=== PATIENT | male | born 1930 | race Caucasian/White ===

== ENCOUNTER 2022-07-20 10:28 | Inpatient (IN) | payer OTHER ==
[~2022-07-20] VITALS: Ht 165.1 cm; Wt 46.2 kg
[2022-07-20 15:39] LABS: Urine Bacteria NONE SEEN /hpf (None Seen); Urine Blood 1+ /uL (Negative); Urine Specific Gravity 1.017 (1.001-1.035); Urine WBC 2589 /hpf (0 - 3); Urine WBC Clumps PRESENT /hpf (None Seen)
[2022-07-20] MEDS ORDERED: cefTRIAXone 1GM/50ML D5W 50 ML IV ONE (16:00)
[2022-07-20 16:40] LABS: Basophils # (auto) 0.1 10 ^3/uL (0-0.2); Basophils % (auto) 0.8 % (0.0-2.0); Eosinophils # (auto) 0.1 10 ^3/uL (0-0.8); Eosinophils % (auto) 0.5 % (0.0-7.0); Hematocrit 33.3 % (41.0-53.0); Hemoglobin 10.6 g/dL (13.5-17.5); Lymphocytes # (auto) 1.2 10 ^3/uL (0.4-5.4); Lymphocytes % (auto) 9.4 % (10.0-50.0); Mean Corpuscular Hemoglobin 27.3 pg (28.0-32.0); Mean Corpuscular Hgb Conc. 31.7 g/dL (32.0-36.0); Mean Corpuscular Volume 86.1 fL (80.0-100.0); Monocytes % (auto) 7.5 % (0.0-12.0); Neutrophils # (auto) 10.8 10 ^3/uL (1.6-8.6); Neutrophils % (auto) 81.8 % (37.0-80.0); Nucleated Red Blood Cells % 0.1 %; Red Blood Cells 3.86 10^6/uL (4.5-5.90); Red Cell Distribution Width 16.3 % (11.8-14.3); White Blood Cell 13.2 10^3/uL (4.4-10.8)
[2022-07-20 17:12] LABS: Albumin 2.8 g/dL (3.4-5.0); Calcium 9.2 mg/dL (8.5-10.1); Potassium 3.8 mmol/L (3.5-5.1)
[2022-07-20 17:18] LABS: BUN/Creatinine Ratio 23.7 (10.0-20.0); Bilirubin, Total 0.5 mg/dL (0.2-1.0); Total Protein 7.5 g/dL (6.4-8.2)
[2022-07-20] MEDS ORDERED: LACTATED RINGER'S 1,000 ML IV ONE (17:45)
[2022-07-20] MEDS ORDERED: DOCUSATE SOD 100 MG CAP PO PRN (19:00)
[2022-07-20] MEDS ORDERED: MORPHINE SULFATE INJ 2 MG/ml SYRG IV PRN (19:00)
[2022-07-20] MEDS ORDERED: ONDANSETRON HCL 4 MG/2 ML VIAL IV PRN (19:00)
[2022-07-20 22:05] LABS: Creatinine, Urine 93 mg/dL (30.0-125.0); Sodium Urine 90 mmol/L (40-220)
[2022-07-21] MEDS: SODIUM CHLORIDE 0.9% 1,000 ML IV SCH ×2 (02:03→10:23)
[2022-07-21 06:40] LABS: Basophils # (auto) 0.1 10 ^3/uL (0-0.2); Basophils % (auto) 0.7 % (0.0-2.0); Eosinophils # (auto) 0.1 10 ^3/uL (0-0.8); Eosinophils % (auto) 1.6 % (0.0-7.0); Hematocrit 29.6 % (41.0-53.0); Hemoglobin 9.8 g/dL (13.5-17.5); Lymphocytes # (auto) 1.4 10 ^3/uL (0.4-5.4); Lymphocytes % (auto) 15.6 % (10.0-50.0); Mean Corpuscular Hemoglobin 28.1 pg (28.0-32.0); Mean Corpuscular Hgb Conc. 33.1 g/dL (32.0-36.0); Mean Corpuscular Volume 84.9 fL (80.0-100.0); Monocytes % (auto) 10.8 % (0.0-12.0); Neutrophils # (auto) 6.4 10 ^3/uL (1.6-8.6); Neutrophils % (auto) 71.3 % (37.0-80.0); Nucleated Red Blood Cells % 0.2 %; Red Blood Cells 3.49 10^6/uL (4.5-5.90); Red Cell Distribution Width 15.5 % (11.8-14.3)
[2022-07-21 07:01] LABS: Albumin 2.4 g/dL (3.4-5.0); BUN/Creatinine Ratio 28.8 (10.0-20.0); Bilirubin, Total 0.3 mg/dL (0.2-1.0); Calcium 8.8 mg/dL (8.5-10.1); Total Protein 6.7 g/dL (6.4-8.2)
[2022-07-21] MEDS ORDERED: cefTRIAXone 1GM/50ML D5W 50 ML IV SCH (09:00)
[2022-07-21] MEDS ORDERED: PANTOPRAZOLE 40 MG/10 ML VIAL INJ IV SCH (10:00)
[2022-07-21 15:35] VITALS: BP 144/77
[2022-07-21] MEDS ORDERED: CEPH-510 PO (15:54)
[2022-07-21] MEDS ORDERED: TAM04C PO (15:54)
[2022-07-21] MEDS ORDERED: TAMSULOSIN HYDROCHLORIDE 0.4 MG CAP PO SCH (18:00)
== END 2022-07-21 16:37 | disposition home or self-care (01) | DRG 689 ==
LOC: ER 10:28 → OVERFLOW 18:59
PROVIDERS: ADMIT Nurse Practitioner Family; ATTEND Nurse Practitioner Family
DX: N13.6 Pyonephrosis (principal); E43 Unspecified severe protein-calorie malnutrition; G93.41 Metabolic encephalopathy; J98.11 Atelectasis; Z68.1 Body mass index [BMI] 19.9 or less, adult; D62 Acute posthemorrhagic anemia; E78.5 Hyperlipidemia, unspecified; I10 Essential (primary) hypertension; E07.9 Disorder of thyroid, unspecified; N40.0 Benign prostatic hyperplasia without lower urinary tract symptoms; E03.9 Hypothyroidism, unspecified; N17.9 Acute kidney failure, unspecified; K40.20 Bilateral inguinal hernia, without obstruction or gangrene, not specified as recurrent; N32.0 Bladder-neck obstruction; N28.89 Other specified disorders of kidney and ureter; K83.8 Other specified diseases of biliary tract; Z90.49 Acquired absence of other specified parts of digestive tract
CPT/HCPCS: 36415; 70450; 74176; 76705; 80053; 81001; 82570; 84300; 85025; 87086; 87088; 87186; 96365; C9113; J0696

== ENCOUNTER 2022-10-05 09:57 | Emergency (ER) | payer OTHER ==
[~2022-10-05] VITALS: Ht 165.1 cm; Wt 46.3 kg
[~2022-10-05 09:57] MED LIST: CEPH-510 PO; TAMS-35 PO
[2022-10-05] MEDS ORDERED: SODIUM BICARBONATE 8.4% INJ 50ML SYRINGE IV ONE (09:58)
[2022-10-05] MEDS ORDERED: EPINEPHrine HCL 1 MG/10 ML SYRG IV ONE (09:58)
[2022-10-05] MEDS ORDERED: ATROPINE SULF 1 MG/10ml SYR IV ONE (09:58)
[2022-10-05] MEDS ORDERED: SODIUM CHLORIDE 0.9% 500 ML IV ONE (10:15)
[2022-10-05 10:24] VITALS: BP 108/61
[2022-10-05 10:24] LABS: Eosinophils # (auto) 0 10 ^3/uL (0-0.8); Lymphocytes # (auto) 1.2 10 ^3/uL (0.4-5.4); Lymphocytes % (auto) 10.6 % (10.0-50.0); Monocytes # (auto) 0.6 10 ^3/uL (0-1.3); White Blood Cell 11.3 10^3/uL (4.4-10.8)
[2022-10-05 10:25] LABS: Basophils # (auto) 0 10 ^3/uL (0-0.2); Basophils % (auto) 0.3 % (0.0-2.0); Hematocrit 32.2 % (41.0-53.0); Mean Corpuscular Volume 80.7 fL (80.0-100.0); Monocytes % (auto) 5.5 % (0.0-12.0); Neutrophils # (auto) 9.4 10 ^3/uL (1.6-8.6); Neutrophils % (auto) 83.6 % (37.0-80.0); Red Blood Cells 3.99 10^6/uL (4.5-5.90); Red Cell Distribution Width 18.6 % (11.8-14.3)
[2022-10-05 10:42] LABS: INR 1.14 (0.9-1.15); Partial Thromboplastin Time 20.3 SEC (24.5-34.5)
[2022-10-05 10:43] LABS: Albumin 3.2 g/dL (3.4-5.0); Calcium 8.7 mg/dL (8.5-10.1); Magnesium 2.4 mg/dL (1.6-2.6); Potassium 4.9 mmol/L (3.5-5.1)
[2022-10-05 10:46] LABS: BUN/Creatinine Ratio 27.4 (10.0-20.0); Bilirubin, Total 0.9 mg/dL (0.2-1.0); Total Protein 6.8 g/dL (6.4-8.2)
[2022-10-05] MEDS ORDERED: ASPirin 81 mg TAB PO ONE (11:15)
[2022-10-05] MEDS ORDERED: HEPARIN 1,000 UNITS/ml 1ML VIAL IV ONE (11:15)
[2022-10-05] MEDS ORDERED: IODIXANOL 320MG/ML 100ML BTL IV ONE ×4 (11:21→12:57)
[2022-10-05] MEDS ORDERED: LIDOCAINE 2%HCL (LOCAL ANESTH.) INJ 20ML MDV ONE (11:21)
[2022-10-05] MEDS ORDERED: ANGIOMAX 250 MG VIAL IV ONE (11:24)
[2022-10-05] MEDS ORDERED: VERAPAMIL 2.5MG/ML INJ 2ML VIAL IV ONE (11:25)
[2022-10-05] MEDS ORDERED: MIDAZOLAM HCL 2MG/2ML 2ml VIAL (1mg/ml) ONE (11:25)
[2022-10-05] MEDS ORDERED: SODIUM CHL 0.9% 50 ML ONE (11:25)
[2022-10-05] MEDS ORDERED: HEPARIN SODIUM (PORCINE) 5000 UNITS/ML 1ML VIAL ONE (11:25)
[2022-10-05] MEDS ORDERED: fentaNYL CITRATE 100 MCG/2 ML VL ONE (11:25)
[2022-10-05] MEDS ORDERED: SUCCINYLCHOLINE CHLORIDE 20 MG/ML 10ML VIAL IV ONE (11:27)
[2022-10-05] MEDS ORDERED: ETOMIDATE (2MG/ML) 20ML VIAL IV ONE (11:27)
[2022-10-05] MEDS ORDERED: ASPirin 81 mg TAB ONE (11:36)
[2022-10-05] MEDS ORDERED: NOREPINEPHRINE 8 MG/250ML KIT 250 ML IV ONE (11:40)
[2022-10-05] MEDS ORDERED: MIDAZOLAM DRIP 50 mg/50mL 50 ML IV SCH (12:00)
[2022-10-05] MEDS ORDERED: MIDAZOLAM DRIP 50 mg/50mL 50 ML IV ONE (12:06)
[2022-10-05] MEDS ORDERED: ATROPINE SULF 1 MG/10ml SYR ONE (12:07)
[2022-10-05] MEDS ORDERED: EPINEPHrine HCL 1 MG/10 ML SYRG ONE (12:07)
[2022-10-05] MEDS ORDERED: NOREPINEPHRINE 8 MG/250ML KIT 250 ML IV SCH (12:15)
[2022-10-05] MEDS ORDERED: SODIUM BICARBONATE 8.4 % INJ 50ML VIAL IV ONE ×2 (12:21→12:24)
[2022-10-05] MEDS ORDERED: EPINEPHrine HCL 250 ML IV ONE (12:43)
[2022-10-05] MEDS ORDERED: EPTIFIBATIDE INJ (2MG/ML) 10ML VIAL IV ONE (13:01)
[2022-10-05] MEDS ORDERED: ONDANSETRON HCL 4 MG/2 ML VIAL IV PRN (13:15)
== END 2022-10-05 11:47 | disposition short-term general hospital (02) ==
LOC: ER 09:57
DX: I46.9 Cardiac arrest, cause unspecified (principal); I21.3 ST elevation (STEMI) myocardial infarction of unspecified site; E78.5 Hyperlipidemia, unspecified; I10 Essential (primary) hypertension; Z90.49 Acquired absence of other specified parts of digestive tract
CPT/HCPCS: 31500; 36415; 36600; 71045; 80053; 82805; 82962; 83735; 84484; 85025; 85610; 85730; 86850; 86900; 86901; 92950; 93005; 99291; C1725; C1730; C1769; C1887; C1894; J0171; J0330; J0583; J1327; J1644; J2250; J7030; Q9967; 99152; 99153